=== PATIENT | female | born 1990 | race American Indian/Alaskan Native ===

== ENCOUNTER 2020-04-25 05:58 | Observation (INO) | payer OTHER ==
[2020-04-25] MEDS ORDERED: BACTERIOSTATIC SODIUM CHLORIDE 0.9% 30 ML VIAL INFILTRATI ONE (06:37)
[2020-04-25] MEDS ORDERED: ONDANSETRON 4 MG/2 ML INJ IV PRN ×2 (07:11→11:00)
[2020-04-25] MEDS ORDERED: HYDROmorphone 1 MG/1 ML INJ IV PRN ×2 (07:11→16:54)
--- NOTE | 2020-04-25 07:11 | Anesthesia Day of Surgery ---
Anesthesia Day of Surgery - Day of Surgery Patient Examined: Yes Patient H&P Reviewed: Yes Patient is NPO: Yes
[2020-04-25] MEDS ORDERED: LACTATED RINGERS 1,000 ML ONE ×2 (07:17→10:00)
[2020-04-25] MEDS ORDERED: traMADol 50 MG TAB ONE (07:19)
[2020-04-25] MEDS ORDERED: HYDROmorphone 1 MG/1 ML INJ ONE ×2 (07:28→11:07)
[2020-04-25] MEDS ORDERED: propofoL 200 MG/20 ML VIAL IV ONE (07:28)
[2020-04-25] MEDS ORDERED: LIDOCAINE MPF (2%) 20 MG/1 ML VIAL 5 ML ONE (07:32)
[2020-04-25] MEDS ORDERED: ROCURONIUM 50 MG/5 ML INJ IV ONE (07:32)
[2020-04-25] MEDS ORDERED: GABAPENTIN 300 MG CAP PO NR (08:00)
[2020-04-25] MEDS ORDERED: MAGNESIUM OXIDE 400 MG TAB PO ONE (08:00)
[2020-04-25] MEDS ORDERED: ACETAMINOPHEN 500 MG TAB PO ONE (08:00)
[2020-04-25] MEDS ORDERED: MIDAZOLAM 2 MG/2 ML INJ IV NR (08:00)
--- NOTE | 2020-04-25 08:13 | History and Physical Report ---
History of Present Illness History of present illness: H&P was done on 04/14. Please see that note for details. Past History - Obstetrical History : 2 Medications and Allergies Allergies Allergy/AdvReac Type Severity Reaction Status Date / Time Sulfa (Sulfonamide Allergy Hives Verified 04/14/20 10:24 Antibiotics) Home Medications Medication Instructions Recorded Confirmed Last Taken Type No Known Home Medications [No 04/07/20 04/07/20 Unknown History Reported Home Medications] Active Meds: Active Medications Cefazolin Sodium (Ancef/Sterile Water 2 Gm/20 Ml) 2 gm IV PREOP NR Stop: 04/25/20 23:59 Gabapentin (Gabapentin) 300 mg PO PREOP NR Stop: 04/25/20 23:59 Last Admin: 04/25/20 07:50 Dose: 300 mg Documented by: Hydromorphone HCl (Dilaudid) 0.25 mg IV Q10MIN PRN PRN Reason: Pain, Moderate (4-6) Hydromorphone HCl (Dilaudid) 0.5 mg IV Q10MIN PRN PRN Reason: Pain , Severe (7-10) Lactated Ringer's (Lactated Ringers) 1,000 mls @ 75 mls/hr IV DIRECT JERMAINE Midazolam HCl (Versed) 2 mg IV PREOP NR Stop: 04/25/20 23:59 Ondansetron HCl (Zofran) 4 mg IV ONCE PRN PRN Reason: Nausea And Vomiting - Vital Signs Vital signs: Vital Signs Temp Pulse Resp BP Pulse Ox 99.0 F 92 H 18 144/95 98 04/25/20 06:30 04/25/20 06:30 04/25/20 06:30 04/25/20 06:30 04/25/20 06:30 Temp Pulse Resp BP Pulse Ox 99.0 F 92 H 18 144/95 98 04/25/20 06:45 04/25/20 06:45 04/25/20 07:49 04/25/20 06:45 04/25/20 06:45 Results All other labs normal.
[2020-04-25] MEDS ORDERED: MIDAZOLAM 2 MG/2 ML INJ ONE (08:14)
[2020-04-25] MEDS ORDERED: LACTATED RINGERS 1,000 ML IV SCH (08:15)
[2020-04-25] MEDS ORDERED: SODIUM CHLORIDE 0.9% 0 ML ONE (08:34)
[2020-04-25] MEDS ORDERED: VASOPRESSIN 20 UNIT/1 ML INJ ONE (08:34)
[2020-04-25] MEDS ORDERED: dexAMETHasone 20 MG/5 ML VIAL ONE (08:37)
[2020-04-25] MEDS ORDERED: ONDANSETRON 4 MG/2 ML INJ ONE (08:39)
[2020-04-25] MEDS ORDERED: SODIUM CHLORIDE 0.9% IRR 1,500 ML BOTTLE IR ONE (08:48)
[2020-04-25] MEDS ORDERED: CONJUGATED ESTROGENS VAG CREAM 30 GM VG ONE ×2 (08:50→09:57)
[2020-04-25] MEDS ORDERED: ceFAZolin/STERILE WATER 2 GM/20 ML SYRINGE IV NR (09:00)
[2020-04-25] MEDS ORDERED: GLYCOPYRROLATE 0.4 MG/2 ML INJ ONE (10:01)
[2020-04-25] MEDS ORDERED: NEOSTIGMINE 10MG/10 ML INJ MDV ONE (10:01)
--- NOTE | 2020-04-25 10:11 | Post Operative Note ---
Date of procedure: 04/25/20 Pre-op diagnosis: uterine prolapse Post-op diagnosis: same Findings: Normal size uterus with prolapse of the cervix to the hymenal level. Normal tubes and ovaries although they are very high and as a result her tubes cannot be removed. Her cystocele under anesthesia was not very significant. A small grade 1 cystocele. Therefore, no anterior colporrhaphy was done. Procedure: Procedure: Total vaginal hysterectomy for uterine prolapse. Patient taken to the operating room and prepped and draped in usual fashion. Patient placed in Trendelenburg. The cervicovaginal mucosa was incised circumferentially around the cervix. The mucosa then dissected off of the cervix in all directions with both sharp and blunt dissection. In the posterior side, dissection continued until the peritoneum was able to be entered which was done so successfully. The long weighted speculum was placed at this point. The uterosacral ligaments bilaterally were clamped cut and suture ligated with 0 Vicryl. Dissection then continued on the anterior side until the peritoneum could be entered on the anterior side. At this point the uterine arteries bilaterally were clamped cauterized and cut using the Enseal device. Then using the Enseal device the ovarian ligament pedicles were clamped cauterized and cut bilaterally as well. The uterus was removed at this point. There were a couple bleeding vessels that required an additional stitch. After that good hemostasis was noted throughout. As noted in the findings the tubes were very high difficult region as a result they cannot be removed. Patient does have a history of a tubal ligation. At this point, the uterosacral ligament sutures were fed through the posterior vaginal mucosa with the assistance of free Martinez needles. Attention now was turned to closure of the vaginal cuff which was done with 0 Vicryl in a running fashion. The uterosacral ligament suture knots were now tied and pushed into the posterior vaginal cuff. Good hemostasis noted throughout at this point. The cystocele noted in the findings was evaluated and was determined to not be significant enough to repair at this time. As result the procedure was concluded. Her urine was clear. Vaginal packing with Premarin cream was placed. Patient tolerated the procedure well. All instrument and lap counts were correct. Patient taken to the recovery room in stable condition. Anesthesia: GETA Surgeon: SARAHI CARVAJAL Estimated blood loss: other (500cc) Pathology: list (uterus) Specimen disposition: to lab Condition: stable Disposition: PACU
[2020-04-25] MEDS ORDERED: KETOROLAC 30 MG/1 ML INJ ONE (10:15)
[2020-04-25] MEDS ORDERED: IBUPROFEN 800 MG TAB PO PRN (11:00)
[2020-04-25] MEDS ORDERED: oxyCODONE /ACETAMINOPHEN 5-325MG TAB PO PRN (11:00)
[2020-04-25] MEDS: HYDROmorphone 1 MG/1 ML INJ IV PRN ×2 (11:14→11:52)
--- NOTE | 2020-04-25 12:07 | Post Anesthesia Evaluation ---
- Post Anesthesia Evaluation Patient Participated: Yes Airway Patent: Yes Stable Respiratory Function: Yes Nausea/Vomiting: No Temp > 96.8F: Yes Pain Manageable: Yes Adequeate Hydration: Yes Anesthesia Complications: No Block Receding Appropriately: Not Applicable Patient on Ventilator: No
[2020-04-26 07:13] LABS: Hematocrit 35.8 % (30.3-42.9); Hemoglobin 12.1 gm/dl (10.1-14.3)
[2020-04-26 12:30] VITALS: BP 134/70
--- NOTE | 2020-04-26 12:56 | Progress Note ---
Assessment and Plan - Patient Problems (1) Hx of vaginal hysterectomy Current Visit: Yes Status: Acute Plan to address problem: pt stable POD 1 s/p TVH and doing very well. D/C home. RTO 6 weeks. Subjective - Subjective Date of service: 04/26/20 (POD 1) Interval history: H&P was done on 04/14. Please see that note for details. Patient reports: appetite normal, voiding normally, pain well controlled, ambulating normally (Pt doing well. No significant vaginal bleeding.), no dizzy ambulation Objective - Vital Signs Latest vital signs: Vital Signs Temp Pulse Pulse Resp BP BP Pulse Ox 04/26/20 12:00 97.8 F 91 H 20 134/70 04/26/20 08:50 98.1 F 84 18 130/75 04/26/20 04:05 98 F 72 18 119/78 04/26/20 00:00 98.6 F 77 16 104/78 04/25/20 22:37 18 04/25/20 21:37 18 04/25/20 20:30 80 18 04/25/20 20:13 98.1 F 119 H 18 133/84 98 04/25/20 16:34 97.9 F 113 H 20 153/98 100 04/25/20 13:48 16 100 Intake and Output 04/25/20 04/26/20 04/26/20 23:59 07:59 15:59 Intake Total 620 300 620 Output Total 1050 1700 600 Balance -430 -1400 20 Intake: Oral 320 620 Intake, Free Water 300 300 Output: Urine 1050 1700 600 Indwelling Catheter 1050 1000 Void 700 600 Other: Total, Intake Amount 200 320 Total, Output Amount 1050 700 500 Voiding Method Indwelling Catheter Toilet # Voids Void 2 - Exam Abdomen: Present: normal appearance, soft. Absent: tenderness
--- NOTE | 2020-04-26 12:57 | Short Stay Summary ---
Short Stay Documentation Date of service: 04/26/20 Narrative H&P: Patient admitted on 04/25/2020 for her total vaginal hysterectomy. Surgery was uncomplicated. Please see OP report for details. Postoperatively patient did very well. Patient sent home in stable condition on postop day #1. - History H&P: dictated - Allergies and Medications Current Medications: Allergies Sulfa (Sulfonamide Antibiotics) Allergy (Verified 04/14/20 10:24) Hives Home Medications Medication Instructions Recorded Confirmed Last Taken Type Ibuprofen [Motrin 800 MG tab] 800 mg PO Q8H PRN #30 tablet 04/25/20 Unknown Rx oxyCODONE /ACETAMINOPHEN [Percocet 1 tab PO Q6H PRN #30 tablet 04/25/20 Unknown Rx 5/325 mg] Active Medications Hydromorphone HCl (Dilaudid) 0.5 mg IV Q10MIN PRN PRN Reason: Pain , Severe (7-10) Last Admin: 04/25/20 11:52 Dose: 0.5 mg Documented by: Hydromorphone HCl (Dilaudid) 1 mg IV Q4H PRN PRN Reason: Pain , Severe (7-10) Last Admin: 04/25/20 17:20 Dose: 1 mg Documented by: Lactated Ringer's (Lactated Ringers) 1,000 mls @ 75 mls/hr IV DIRECT JERMAINE Last Admin: 04/25/20 07:40 Dose: 75 mls/hr Documented by: Ibuprofen (Ibuprofen) 800 mg PO Q8H PRN PRN Reason: Pain, Mild (1-3) Last Admin: 04/25/20 21:37 Dose: 800 mg Documented by: Ondansetron HCl (Zofran) 4 mg IV ONCE PRN PRN Reason: Nausea And Vomiting Ondansetron HCl (Zofran) 4 mg IV Q8H PRN PRN Reason: Nausea And Vomiting Oxycodone/Acetaminophen (Percocet 5/325) 1 tab PO Q6H PRN PRN Reason: Pain, Moderate (4-6) Last Admin: 04/25/20 15:01 Dose: 1 tab Documented by: - Disposition Condition at discharge: Stable Disposition: - TO HOME OR SELFCARE - Discharge Diagnoses (1) Hx of vaginal hysterectomy Status: Acute Short Stay Discharge Plan Follow up with: SARAHI CARVAJAL MD [Staff Physician] - 6 Weeks Forms: [facility] Discharge Summary Prescriptions: Ibuprofen [Motrin 800 MG tab] 800 mg PO Q8H PRN #30 tablet PRN Reason: Pain, Mild (1-3) oxyCODONE /ACETAMINOPHEN [Percocet 5/325 mg] 1 tab PO Q6H PRN #30 tablet PRN Reason: Pain, Moderate (4-6)
== END 2020-04-26 15:41 | disposition home or self-care (01) ==
LOC: OR 05:58 → OB 10:22
PROVIDERS: ADMIT Obstetrics & Gynecology; ATTEND Obstetrics & Gynecology
DX: N81.4 Uterovaginal prolapse, unspecified (principal); D25.1 Intramural leiomyoma of uterus; Z90.710 Acquired absence of both cervix and uterus
CPT/HCPCS: 36415; 58260; 81025; 85014; 85018; 86850; 86900; 86901; 88305; 96361; 96374; G0378; J0690; J1100; J1170; J1885; J2250; J2704; J2710; J7120; J2405